=== PATIENT | female | born 1995 | race Caucasian/White ===

== ENCOUNTER 2022-05-27 09:00 | Emergency (ER) | payer OTHER ==
[~2022-05-27] VITALS: Ht 167.6 cm; Wt 72.7 kg
[2022-05-27 09:13] VITALS: BP 151/103
[2022-05-27] MEDS ORDERED: CETI-450 PO (09:23)
[2022-05-27] MEDS ORDERED: CHOL400T56 PO (09:23)
[2022-05-27] MEDS ORDERED: RISP0.5T39 PO (09:23)
[2022-05-27] MEDS ORDERED: GABA-1181 PO (09:23)
[2022-05-27] MEDS ORDERED: FLUT16SP NASAL (09:23)
[2022-05-27] MEDS ORDERED: AMLO-257 PO (09:23)
[2022-05-27] MEDS ORDERED: OS500 PO (09:23)
[2022-05-27] MEDS ORDERED: HYDR-4723 PO (09:23)
[2022-05-27] MEDS ORDERED: ALBU90AE IH (09:23)
[2022-05-27] MEDS ORDERED: AMOX TR/POT CLAV 400/57.5 MG/5 ML SUSPENSION ORAL.SYG PO ONE (10:00)
[2022-05-27] MEDS ORDERED: ACETAMINOPHEN 160 MG/5 ML SUSPENSION UDCUP PO ONE (10:00)
[2022-05-27] MEDS ORDERED: ACET160E39 PO (10:14)
[2022-05-27] MEDS ORDERED: AUGM250L PO (10:15)
== END 2022-05-27 10:42 | disposition home or self-care (01) ==
LOC: EMS 09:07
DX: K08.89 Other specified disorders of teeth and supporting structures (principal); F84.0 Autistic disorder
CPT/HCPCS: 99283

== ENCOUNTER 2022-12-11 01:56 | Emergency (ER) | payer OTHER ==
[~2022-12-11 01:56] MED LIST: ACET160E39 PO; ALBU90AE IH; AMLO-257 PO; AUGM250L PO; CETI-450 PO; CHOL400T56 PO; FLUT16SP NASAL; GABA-1181 PO; HYDR-4723 PO; OS500 PO; RISP0.5T39 PO
== END 2022-12-11 02:47 | disposition left against medical advice (07) ==
LOC: EMS 01:58
DX: R11.2 Nausea with vomiting, unspecified (principal); Z53.21 Procedure and treatment not carried out due to patient leaving prior to being seen by health care provider
CPT/HCPCS: 99281; Z7502